=== PATIENT | female | born 1960 | race Caucasian/White ===

== ENCOUNTER → 2019-01-16 14:36 | Outpatient (CLI) | payer OTHER, SELFPAY ==
--- NOTE | 2019-01-16 14:40 | DI.RAD.S_ITS ---
PROCEDURE: XR FOOT LT MIN 3V INDICATIONS: l foot pain TECHNIQUE: 3 views of the foot were acquired. COMPARISON: None. FINDINGS: Bones: No fractures or dislocations. No suspicious bony lesions. Pes planus alignment. Soft tissues: No tibiotalar joint effusion. Achilles tendon appears normal. IMPRESSION: Pes planus. No acute fracture. No osseous lesion. If symptoms or clinical suspicion for pathology persists, repeat plain films, or advanced imaging (CT, bone scan, or MRI) may be helpful for further assessment. Dictated by: Osmin Subramanian M.D. on 01/16/2019 at 14:00 Approved by: Osmin Subramanian M.D. on 01/16/2019 at 14:01
== END ==
PROVIDERS: Visit Provider Physician Assistant
DX: M79.672 Pain in left foot (principal); M21.42 Flat foot [pes planus] (acquired), left foot
CPT/HCPCS: 73630